=== PATIENT | male | born 1945 | race Caucasian/White ===

== ENCOUNTER → 2018-07-22 15:59 | Outpatient (CLI) | payer MEDICARE, SELFPAY ==
--- NOTE | 2018-07-22 16:06 | DI.RAD.S_ITS ---
PROCEDURE: XR KUB INDICATIONS: KIDNEY STONES TECHNIQUE: One view of the abdomen acquired. COMPARISON: [facility], , KUB XRAY (1 VIEW ABDOMEN), 01/19/2012, 15:49. FINDINGS: Surgical changes and devices: None. Bowel: Bowel gas pattern is normal. Soft tissues: Small round calcifications are noted in mid to lower pole of left kidney measures 5 mm in size. Faint radiodensity in the region of mid to lower pole right kidney are also seen measuring up to 4 mm in size. Round calcifications are noted in bilateral lower pelvis are most consistent with phleboliths.. Visualized solid organ contours appear normal in size. Bones: No suspicious bony lesions. IMPRESSION: Suggestion of bilateral renal calculi. Phleboliths in lower pelvis. Dictated by: Kedar Benjamin M.D. on 07/22/2018 at 17:19 Approved by: Kedar Benjamin M.D. on 07/22/2018 at 17:23
[2018-07-22 19:03] LABS: BUN Creatinine Ratio 20.5 (6-22); Blood Urea Nitrogen 39 mg/dL (9-20); Calcium 9.6 mg/dL (8.4-10.2); Carbon Dioxide 23 mmol/L (22-32); Chloride 106 mmol/L (98-107); Estimated Glomerular Filt Rate 34.7 mL/min (>60); Glucose 99 mg/dL (80-110); HEMOLYSIS < 15 (0-50); Potassium 4.6 mmol/L (3.4-5.1); Sodium 140 mmol/L (137-145)
== END ==
PROVIDERS: Family Provider Internal Medicine; PCP Internal Medicine; Visit Provider Specialist
DX: N20.0 Calculus of kidney (principal); N18.3 Chronic kidney disease, stage 3 (moderate)
CPT/HCPCS: 36415; 74018; 80048

== ENCOUNTER → 2018-10-24 16:14 | Outpatient (CLI) | payer MEDICARE, SELFPAY ==
--- NOTE | 2018-10-24 16:19 | DI.MRI.S_ITS ---
PROCEDURE: MR KNEE RT WO CON INDICATIONS: Right knee pain TECHNIQUE: Noncontrast sagittal PD fast spin echo and T2 fast spin echo with fat saturation, sagittal 3-D FLASH with fat saturation; coronal T1 spin echo and PD fast spin echo with fat saturation, and axial PD fast spin echo with fat saturation through the knee. COMPARISON: None. FINDINGS: Image quality: Excellent. Menisci: Lateral meniscal tear involving the anterior horn and body with macerated appearance with partial extrusion. Medial meniscal tear is also seen involving the anterior horn and body with marked truncation of the free margin for example image 13 series 11, image 23 series 8. Cruciate ligaments: Posterior cruciate ligament appears grossly intact. Lax appearance of the distal aspect of the ACL and based on coronal appearance, probable rupture of the posterolateral band. Medial structures: The medial collateral ligament appears intact. The posterior oblique ligament, semimembranosus tendon insertions, oblique popliteal ligament, and meniscocapsular junction appear intact. Visualized portions of the pes anserinus tendons appear normal. No abnormal bursal fluid. Lateral structures: The lateral collateral ligament demonstrates thickening and intrasubstance signal change in keeping with sprain, although technically age indeterminate. The biceps femoris tendon appears intact. Popliteus tendon grossly unremarkable. Iliotibial band appears intact. Anterior structures: Prepatellar and superficial infrapatellar subcutaneous edema/fluid. The quadriceps and patellar tendons appear however there is diffuse patellar tendinopathy, mild. Patellar alignment is normal. No femoral trochlear dysplasia or ventral trochlear prominence. No edema in the infrapatellar fat pad. Incidentally noted ligamentum mucosum Bones and cartilage: No focal marrow contusion or discrete low signal fracture line. Within the medial compartment, mild surface fraying of femoral articular cartilage Within the lateral compartment, diffuse partial-thickness loss of the femoral cartilage. There is also diffuse femoral cartilage surface fraying Within the patellofemoral compartment, diffuse partial-thickness loss of the femoral trochlear and patellar articular cartilage. Scant subchondral marrow signal changes present in the lateral patellar facet and lateral aspect of the femoral trochlea. Joint space: Small joint effusion is seen. No Mariscal's cyst identified. No specific evidence of intra-articular loose body. Atrophy of the medial gastrocnemius muscle. IMPRESSION: Lateral meniscal tear involving the anterior horn and body with partial extrusion Medial meniscal tear also noted involving the anterior horn and body. Partial rupture of the ACL involving the posterolateral band as above. Mild degenerative joint disease. Small joint effusion. Diffuse mild patellar tendinopathy. Medial gastrocnemius muscle atrophy. Dictated by: Christian Bauman M.D. on 10/25/2018 at 9:38 Approved by: Christian Bauman M.D. on 10/25/2018 at 9:48
== END ==
PROVIDERS: Family Provider Internal Medicine; PCP Internal Medicine; Visit Provider Orthopaedic Surgery
DX: S83.281A Other tear of lateral meniscus, current injury, right knee, initial encounter (principal); S83.241A Other tear of medial meniscus, current injury, right knee, initial encounter; S83.8X1A Sprain of other specified parts of right knee, initial encounter; M17.11 Unilateral primary osteoarthritis, right knee; M25.461 Effusion, right knee; M76.51 Patellar tendinitis, right knee
CPT/HCPCS: 73721

== ENCOUNTER → 2018-12-07 16:25 | Outpatient (CLI) | payer MEDICARE, SELFPAY ==
[2018-12-07 18:31] LABS: BUN Creatinine Ratio 19.4 (6-22); Blood Urea Nitrogen 35 mg/dL (9-20); Calcium 10.2 mg/dL (8.4-10.2); Carbon Dioxide 24 mmol/L (22-32); Chloride 106 mmol/L (98-107); Glucose 83 mg/dL (80-110); HEMOLYSIS < 15 (0-50); Magnesium 2.2 mg/dL (1.6-2.3); Potassium 5.2 mmol/L (3.4-5.1); Sodium 141 mmol/L (137-145)
== END ==
PROVIDERS: PCP Internal Medicine; Visit Provider Internal Medicine
DX: R19.7 Diarrhea, unspecified (principal); I10 Essential (primary) hypertension
CPT/HCPCS: 36415; 80048; 83735

== ENCOUNTER → 2019-07-13 16:13 | Outpatient (CLI) | payer MEDICARE, SELFPAY ==
[2019-07-13 17:36] LABS: Add Manual Diff / Slide Review NO; Basophils Absolute Auto 200 /uL (0-100); Basophils Percent Auto 1.3 % (0-2); Eosinophils Absolute Auto 700 /uL (0-450); Eosinophils Percent Auto 5.5 % (2-4); Hematocrit 39.9 % (41-53); Hemoglobin 13.4 g/dL (13.5-17.5); Lymphocytes Absolute Auto 3600 /uL (1100-4500); Lymphocytes Percent Auto 26.6 % (25-40); Mean Corpuscular HGB Conc 33.5 % (30-36); Mean Corpuscular Hemoglobin 29.4 PG (26-34); Mean Corpuscular Volume 87.9 fL (80-100); Monocytes Absolute Auto 1100 /uL (0-900); Monocytes Percent Auto 8.4 % (3-14); Neutrophils Absolute Auto 7900 /uL (1500-7000); Neutrophils Percent Auto 58.2 % (50-75); Platelet Count 414 X10^3/uL (150-400); Red Blood Cell Count 4.55 X10^6/uL (4.5-5.9); Red Cell Distribution Width 14.2 % (11.6-14.8); White Blood Cell Count 13.5 X10^3/uL (4.5-11.0)
[2019-07-13 17:48] LABS: Hemoglobin A1C% w Est Avg Glu 7.1 % (4.0-6.0)
[2019-07-13 17:51] LABS: Alanine Aminotransferase 17 IU/L (<50); Albumin 4.5 g/dL (3.5-5.0); Albumin Globulin Ratio 1.1 (1.0-2.8); Alkaline Phosphatase 78 U/L (38-126); Aspartate Aminotransferase 24 IU/L (17-59); BUN Creatinine Ratio 19.4 (6-22); Bilirubin Total 0.3 mg/dL (0.2-1.3); Blood Urea Nitrogen 39 mg/dL (9-20); Calcium 10.1 mg/dL (8.4-10.2); Carbon Dioxide 27 mmol/L (22-32); Chloride 105 mmol/L (98-107); Estimated Glomerular Filt Rate 32.5 mL/min (>60); Globulin 4.2 g/dL (1.7-4.1); Glucose 114 mg/dL (80-110); HEMOLYSIS < 15 (0-50); Potassium 5.2 mmol/L (3.4-5.1); Sodium 142 mmol/L (137-145); Total Protein 8.7 g/dL (6.3-8.2)
== END ==
PROVIDERS: PCP Internal Medicine; Referring Provider Internal Medicine; Visit Provider Internal Medicine
DX: E11.9 Type 2 diabetes mellitus without complications (principal); I10 Essential (primary) hypertension; N18.3 Chronic kidney disease, stage 3 (moderate)
CPT/HCPCS: 36415; 80053; 83036; 85025

== ENCOUNTER 2020-07-24 13:18 | Emergency (ER) | payer MEDICARE, SELFPAY ==
[2020-07-24] VITALS (11 sets, daily range): BP systolic 138–158; BP diastolic 65–73; PULSE 38–51; RESP 15–24; TEMP 36.5; O2SAT 96–98; BMI 41.5
[2020-07-24 14:21] LABS: Add Manual Diff / Slide Review NO; Basophils Absolute Auto 100 /uL (0-100); Basophils Percent Auto 1.4 % (0-2); Eosinophils Absolute Auto 400 /uL (0-450); Eosinophils Percent Auto 4.3 % (2-4); Hematocrit 28.3 % (41-53); Hemoglobin 8.9 g/dL (13.5-17.5); Lymphocytes Absolute Auto 2000 /uL (1100-4500); Lymphocytes Percent Auto 20.2 % (25-40); Mean Corpuscular HGB Conc 31.7 % (30-36); Mean Corpuscular Hemoglobin 27.4 PG (26-34); Mean Corpuscular Volume 86.4 fL (80-100); Monocytes Absolute Auto 800 /uL (0-900); Monocytes Percent Auto 8.5 % (3-14); Neutrophils Absolute Auto 6400 /uL (1500-7000); Neutrophils Percent Auto 65.6 % (50-75); Platelet Count 336 X10^3/uL (150-400); Red Blood Cell Count 3.27 X10^6/uL (4.5-5.9); Red Cell Distribution Width 15.3 % (11.6-14.8); White Blood Cell Count 9.7 X10^3/uL (4.5-11.0)
[2020-07-24 14:35] LABS: Alanine Aminotransferase 32 IU/L (<50); Albumin 4.1 g/dL (3.5-5.0); Alkaline Phosphatase 76 U/L (38-126); Aspartate Aminotransferase 28 IU/L (17-59); BUN Creatinine Ratio 23.7 (6-22); Bilirubin Total 0.2 mg/dL (0.2-1.3); Blood Urea Nitrogen 66 mg/dL (9-20); Calcium 9.7 mg/dL (8.4-10.2); Carbon Dioxide 19 mmol/L (22-32); Chloride 113 mmol/L (98-107); Estimated Glomerular Filt Rate 22.2 mL/min (>60); Glucose 158 mg/dL (80-110); HEMOLYSIS < 15 (0-50); Potassium 5.3 mmol/L (3.4-5.1); Sodium 142 mmol/L (137-145); Total Protein 8.1 g/dL (6.3-8.2)
[2020-07-24 14:58] LABS: Appearance Urine UA CLOUDY; Bilirubin Urine UA NEGATIVE (NEGATIVE); Color Urine UA BROWN; Glucose Urine UA TRACE g/dL (Negative); Ketones Urine UA NEGATIVE (NEGATIVE); Leukocyte Esterase Urine UA 1+ (NEGATIVE); Nitrite Urine UA NEGATIVE (Negative); Occult Blood Urine UA 3+ (Negative); Protein Urine UA 3+ (Negative); Specific Gravity Urine UA 1.025 (1.000-1.035); Urobilinogen Urine UA 0.2 E.U./dL (0.2); pH Urine UA 5.5 (4.5-8.0)
[2020-07-24 15:19] LABS: Bacteria Urine Many (>30); Culture Indicated Urine Specimen Cultured; RBC Urine 30-100/HPF (0-5/HPF); WBC Urine 30-100/HPF (0-5/HPF)
--- NOTE | 2020-07-24 15:34 | ED.GENADULT ---
HPI - General Adult General Chief complaint: Urogenital-Male Stated complaint: says Blood cell count is low Time Seen by Provider: 07/24/20 14:16 Source: patient Mode of arrival: Ambulatory Limitations: no limitations History of Present Illness HPI narrative: Patient is a 75-year-old male with a history of bladder cancer. He also recently had coronary artery stents placed. Is on Eliquis. Was seen in an outside facility 2 different times within the past couple days for blood in his urine. He was told that his hemoglobin in hematocrit were close to a level where he potentially would need transfused. He was instructed to follow-up with urology but does not have a specific appointment scheduled yet. He comes to this emergency department today for further evaluation and continued blood in his urine. Related Data Home Medications Medication Instructions Recorded Confirmed ResMed AirSense 10 CPAP #1 ea 04/29/18 05/25/20 CBD Oil TOPICAL 10/18/18 05/25/20 amlodipine 5 mg tablet 10 mg PO DAILY 10/24/19 07/24/20 diphenoxylate-atropine 2.5 1 tab PO Q6-8H PRN 10/24/19 05/25/20 mg-0.025 mg tablet Novolon See Rx Instructions .ROUTE .COMPLEX 07/24/20 07/24/20 apixaban 5 mg PO BID 07/24/20 07/24/20 atorvastatin 40 mg PO BEDTIME 07/24/20 07/24/20 carvedilol 6.25 mg PO BID 07/24/20 07/24/20 clopidogrel 75 mg PO DAILY 07/24/20 07/24/20 lisinopril 20 mg PO DAILY 07/24/20 07/24/20 vancomycin 125 mg PO DAILY 07/24/20 07/24/20 Allergies Allergy/AdvReac Type Severity Reaction Status Date / Time Sulfa (Sulfonamide Allergy Severe SWELLING Verified 07/24/20 13:41 Antibiotics) tetanus toxoid, adsorbed Allergy Severe SWELLING Verified 07/24/20 13:41 gabapentin AdvReac Mild SYNCOPE Verified 07/24/20 13:41 Review of Systems Constitutional Constitutional: Reports system reviewed and no additional complaints, except as documented Cardiovascular Cardiovascular: Denies chest pain Respiratory Respiratory: Reports system reviewed and no additional complaints, except as documented Genitourinary Genitourinary: Reports hematuria Genitourinary: Reports hematuria Integumentary/Breasts Skin/Breast: Reports system reviewed and no additional complaints, except as documented Hematologic/Lymphatic On Anticoagulants: Yes Allergic/Immunologic Allergic/Immunologic: Reports system reviewed and no additional complaints, except as documented Patient History Medical History C. 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 Kidney disease, chronic, stage III (GFR 30-59 ml/min) Kidney stones Morbid obesity with BMI of 40.0-44.9, adult Obstructive sleep apnea syndrome (~1994) Snoring Tobacco use disorder, continuous (~1962) Type 2 diabetes mellitus Family History (Updated 10/24/19 @ 17:58 by ARTEM Jackson) Father Congestive heart failure Mother Hypertension Social History marital status: details: lives in [place] household members: other (his daughter, Lani) lives independently: Yes caregiver/support person: No housing: house 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 seatbelt use: always Smoking Status: Former smoker Smoking Status: Former smoker Substance Use Type: does not use Exam Initial Vital Signs Initial Vital Signs: Vital Signs Temperature 97.7 F 07/24/20 13:41 Pulse Rate 38 L 07/24/20 13:41 Respiratory Rate 18 07/24/20 13:41 Blood Pressure 148/73 H 07/24/20 13:41 Pulse Oximetry 96 07/24/20 13:41 Const General: cooperative Limitations: mental status not altered [facility] Head: normal to inspection and normocephalic Resp Effort & Inspection: normal respiratory effort Cardio Rate: bradycardic Neuro General: patient alert and patient awake Speech: speech normal Psych Appearance: grossly normal and well kempt Course Orders Ordered: ED Orders 07/24/20 13:51 EKG-12 Lead Stat 07/24/20 14:01 COVID19 - 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) Stat 07/24/20 14:08 Complete Blood Count AUTO DIFF Stat Comprehensive Metabolic Panel Stat Type and Screen Stat 07/24/20 14:35 Urinalysis and Microscopic Stat Urine Culture Stat Vital Signs Vital signs: Vital Signs - 8 hr 07/24/20 13:41 07/24/20 14:00 07/24/20 14:02 Temperature 97.7 F Pulse Rate 38 L 47 L 51 L Respiratory Rate 18 21 Blood Pressure 148/73 H 146/72 H Pulse Oximetry 96 96 97 07/24/20 14:30 07/24/20 14:31 07/24/20 15:00 Temperature Pulse Rate 46 L 44 L 47 L Respiratory Rate 22 22 21 Blood Pressure 141/66 H Pulse Oximetry 98 98 98 07/24/20 15:01 07/24/20 15:30 07/24/20 15:31 Temperature Pulse Rate 46 L 47 L 44 L Respiratory Rate 23 24 Blood Pressure 158/65 H 138/67 Pulse Oximetry 97 97 97 07/24/20 16:00 07/24/20 16:01 Temperature Pulse Rate 45 L 48 L Respiratory Rate 15 17 Blood Pressure 147/71 H Pulse Oximetry 96 96 Medical Decision Making Medical Records Medical records reviewed: Yes I reviewed the patient's medical records. Lab Data Lab results reviewed: Yes I reviewed the patient's lab results. Result diagrams: 07/24/20 14:08 07/24/20 14:08 Labs: Lab Results 07/24/20 07/24/20 07/24/20 Range/Units 14:01 14:08 14:08 WBC 9.7 (4.5-11.0) X10^3/uL RBC 3.27 L (4.5-5.9) X10^6/uL Hgb 8.9 L (13.5-17.5) g/dL Hct 28.3 L (41-53) % MCV 86.4 (80-100) fL MCH 27.4 (26-34) PG MCHC 31.7 (30-36) % RDW 15.3 H (11.6-14.8) % Plt Count 336 (150-400) X10^3/uL Neut % (Auto) 65.6 (50-75) % Lymph % (Auto) 20.2 L (25-40) % [place] % (Auto) 8.5 (3-14) % Eos % (Auto) 4.3 H (2-4) % Baso % (Auto) 1.4 (0-2) % Neut # (Auto) 6400 (1515-5409) /uL Lymph # (Auto) 2000 (8036-8351) /uL [place] # (Auto) 800 (0-900) /uL Eos # (Auto) 400 (0-450) /uL Baso # (Auto) 100 (0-100) /uL Sodium 142 (137-145) mmol/L Potassium 5.3 H (3.4-5.1) mmol/L Chloride 113 H (98-107) mmol/L Carbon Dioxide 19 L (22-32) mmol/L BUN 66 H (9-20) mg/dL Creatinine 2.79 H (0.66-1.25) mg/dL Estimated GFR 22.2 L (>60) mL/min BUN/Creatinine Ratio 23.7 H (6-22) Glucose 158 H (80-110) mg/dL Calcium 9.7 (8.4-10.2) mg/dL Total Bilirubin 0.2 (0.2-1.3) mg/dL AST 28 (17-59) IU/L ALT 32 (<50) IU/L Alkaline Phosphatase 76 (38-126) U/L Total Protein 8.1 (6.3-8.2) g/dL Albumin 4.1 (3.5-5.0) g/dL Globulin 4.0 (1.7-4.1) g/dL Albumin/Globulin Ratio 1.0 (1.0-2.8) Urine Color Urine Appearance Urine pH (4.5-8.0) Ur Specific [place] (1.000-1.035) Urine Protein (Negative) Urine Glucose (UA) (Negative) g/dL Urine Ketones (NEGATIVE) Urine Occult Blood (Negative) Urine Nitrate (Negative) Urine Bilirubin (NEGATIVE) Urine Urobilinogen (0.2) E.U./dL Ur Leukocyte Esterase (NEGATIVE) Urine RBC (0-5/HPF) Urine WBC (0-5/HPF) Urine Bacteria (None) Ur Culture Indicated? SARS-CoV-2 (PCR) Negative (Negative) Blood Type Antibody Screen 07/24/20 07/24/20 Range/Units 14:08 14:35 WBC (4.5-11.0) X10^3/uL RBC (4.5-5.9) X10^6/uL Hgb (13.5-17.5) g/dL Hct (41-53) % MCV (80-100) fL MCH (26-34) PG MCHC (30-36) % RDW (11.6-14.8) % Plt Count (150-400) X10^3/uL Neut % (Auto) (50-75) % Lymph % (Auto) (25-40) % [place] % (Auto) (3-14) % Eos % (Auto) (2-4) % Baso % (Auto) (0-2) % Neut # (Auto) (0829-8500) /uL Lymph # (Auto) (2149-3767) /uL [place] # (Auto) (0-900) /uL Eos # (Auto) (0-450) /uL Baso # (Auto) (0-100) /uL Sodium (137-145) mmol/L Potassium (3.4-5.1) mmol/L Chloride (98-107) mmol/L Carbon Dioxide (22-32) mmol/L BUN (9-20) mg/dL Creatinine (0.66-1.25) mg/dL Estimated GFR (>60) mL/min BUN/Creatinine Ratio (6-22) Glucose (80-110) mg/dL Calcium (8.4-10.2) mg/dL Total Bilirubin (0.2-1.3) mg/dL AST (17-59) IU/L ALT (<50) IU/L Alkaline Phosphatase (38-126) U/L Total Protein (6.3-8.2) g/dL Albumin (3.5-5.0) g/dL Globulin (1.7-4.1) g/dL Albumin/Globulin Ratio (1.0-2.8) Urine Color Brown Urine Appearance Cloudy Urine pH 5.5 (4.5-8.0) Ur Specific [place] 1.025 (1.000-1.035) Urine Protein 3+ H (Negative) Urine Glucose (UA) Trace H (Negative) g/dL Urine Ketones Negative (NEGATIVE) Urine Occult Blood 3+ H (Negative) Urine Nitrate Negative (Negative) Urine Bilirubin Negative (NEGATIVE) Urine Urobilinogen 0.2 (0.2) E.U./dL Ur Leukocyte Esterase 1+ H (NEGATIVE) Urine RBC 30-100/hpf H (0-5/HPF) Urine WBC 30-100/hpf H (0-5/HPF) Urine Bacteria Many (>30) H (None) Ur Culture Indicated? Specimen cultured SARS-CoV-2 (PCR) (Negative) Blood Type O Positive Antibody Screen Negative MDM Narrative Medical decision making narrative: Patient's hemoglobin and hematocrit today are essentially the same as with a were yesterday. He continues to have hematuria. He is also on vancomycin for treatment of C diff. I did discuss the case with Dr. Bailey with Urology. The patient has seen Dr. Bailey in the past with this was several years ago. No indication for emergent admission to the hospital. Patient's urinalysis today does have white blood cells and also bacteria however given his complicated antibiotic history to include an allergy to sulfa thigh and his current treatment with vancomycin to C diff I felt that given his presentation due to a lack of leukocytosis and fever that we should wait for a urine culture and sensitivities before treating him with antibiotics. I did discuss this with the patient and his family bedside and expressed understanding of this. We will contact them when the culture results. We also had a discussion regarding his use of the anticoagulation. His cardiac stents are new within the past 14 days. We discussed that there are risks of staying on the anticoagulation and also risk of coming off of the blood thinners. Given his blood counts today the plan will be is to have him continue the blood thinners however they were instructed to contact their marketing campaign analyst to discuss this about potentially stopping these medications. They were given information with regard to follow-up with urology. They will return to the emergency department for any new or worsening symptoms. Discharge Plan Departure Patient Disposition: Home Clinical Impression: Hematuria, Anemia, Bacteriuria Instructions: DI for Hematuria Activity Restrictions/Additional Instructions: I did discuss the case today with Dr. Bailey. His office phone number is [phone]. He stated that he was going to talk with his staff about getting you when has a follow-up. Until then I recommend you continue all of your medications as directed. Per our discussion about your anticoagulation I feel that right now staying on the anticoagulation would be warranted given your recent stent placement. If the bleeding continues or worsens we may need to re-evaluate this and stop the blood thinners. I would recommend that you contact your marketing campaign analyst to discuss this with him/her. They may state that it is okay for you to stop the anticoagulation because of your other symptoms. You also had a urinalysis today that is somewhat concerning for infection. A urine culture is pending. Given your history of C diff in your current treatment for this I feel that we should wait until the culture results before we start on any antibiotics. Return to the emergency department for any new symptoms. Prescriptions: No Action apixaban 5 mg Tablet 5 mg PO BID RF: 0 atorvastatin 40 mg Tablet 40 mg PO BEDTIME RF: 0 carvedilol 6.25 mg Tablet 6.25 mg PO BID RF: 0 lisinopril 20 mg Tablet 20 mg PO DAILY RF: 0 clopidogrel 75 mg Tablet 75 mg PO DAILY RF: 0 vancomycin 125 mg Capsule 125 mg PO DAILY RF: 0 Novolon See Rx Instructions .ROUTE .COMPLEX RF: 0 CBD Oil topical RF: 0 (DME) ResMed AirSense 10 CPAP Qty: 1 RF: 0 amlodipine 5 mg tablet 10 mg PO DAILY RF: 0 diphenoxylate-atropine [Lomotil] 2.5-0.025 mg tablet 1 tab PO Q6-8H PRNRF: 0 Referrals: Laz Bailey MD [Physician] - Scott Howard MD [Primary Care Provider] -
[2020-07-24 16:12] LABS: COVID19 - ADMIT (NP swab/PCR) Negative (Negative)
== END 2020-07-24 16:21 | disposition home or self-care (01) ==
PROVIDERS: Emergency Medicine; Emergency Provider Emergency Medicine; PCP Internal Medicine; Referring Provider Internal Medicine Cardiovascular Disease
DX: R31.9 Hematuria, unspecified (principal); D64.9 Anemia, unspecified; R82.71 Bacteriuria; Z20.822 Contact with and (suspected) exposure to COVID-19; Z98.890 Other specified postprocedural states; Z95.818 Presence of other cardiac implants and grafts; Z79.01 Long term (current) use of anticoagulants; A04.72 Enterocolitis due to Clostridium difficile, not specified as recurrent
CPT/HCPCS: 36415; 80053; 81001; 85025; 86850; 86900; 86901; 87077; 87086; 87185; 87186; 87635; 93005; 93010; 99283; 99284; C9803

== ENCOUNTER → 2020-11-02 15:00 | Outpatient (ROUT) | payer OTHER, MEDICARE, SELFPAY ==
[2020-11-02 15:23] LABS: Hematocrit 30.4 % (41-53)
[2020-11-02 15:27] LABS: BUN Creatinine Ratio 21.9 (6-22); Blood Urea Nitrogen 42 mg/dL (9-20); Calcium 9.4 mg/dL (8.4-10.2); Carbon Dioxide 21 mmol/L (22-32); Chloride 113 mmol/L (98-107); Estimated Glomerular Filt Rate 34.1 mL/min (>60); Glucose 140 mg/dL (80-110); Sodium 141 mmol/L (137-145)
[2020-11-02 15:28] LABS: HEMOLYSIS 84 (0-50)
== END ==
PROVIDERS: PCP Internal Medicine; Visit Provider Family Medicine
DX: I25.10 Atherosclerotic heart disease of native coronary artery without angina pectoris (principal)
CPT/HCPCS: 80048; 85014; 85018